=== PATIENT | female | born 1980 | race Caucasian/White ===

== ENCOUNTER → 2018-02-08 16:55 | Outpatient (CLI) | payer OTHER, SELFPAY ==
[2018-02-15 09:39] LABS: HPV Reflexed? NOT INDICATED
== END ==
PROVIDERS: Visit Provider Obstetrics & Gynecology
DX: Z12.4 Encounter for screening for malignant neoplasm of cervix (principal)
CPT/HCPCS: 88175; G0145

== ENCOUNTER → 2019-05-19 | Outpatient (CLI) | payer BC, SELFPAY ==
[2019-05-23 16:07] LABS: Age Gdln ACOG Testing 30-65 (.)
[2019-05-24 17:46] LABS: HPV APTIMA, High Risk Negative (Negative); HPV Reflexed? YES, CHARGE PATIENT
== END | disposition home or self-care (01) ==
LOC: LABSPEC 16:21
PROVIDERS: Visit Provider Obstetrics & Gynecology
DX: Z12.4 Encounter for screening for malignant neoplasm of cervix (principal)
CPT/HCPCS: 87624; 88175; G0145

== ENCOUNTER → 2020-11-12 | Outpatient (CLI) | payer BC, SELFPAY | END | disposition home or self-care (01) | LOC: LABSPEC 15:27 | PROVIDERS: Referring Provider Otolaryngology Otolaryngology/Facial Plastic Surgery; Visit Provider Otolaryngology Otolaryngology/Facial Plastic Surgery | DX: J02.9 Acute pharyngitis, unspecified (principal) | CPT/HCPCS: 87070 ==

== ENCOUNTER → 2021-08-13 | Outpatient (CLI) | payer BC, SELFPAY ==
[2021-08-13 10:35] LABS: Absolute Lymphocyte Count 1.32 X10^3/uL (0.83-4.51); Absolute Neutrophil Count 1.6 X10^3/uL (2.0-7.7); Basophil# 0.03 X10^3/uL; Basophil% 0.9 % (0-1); Eosinophil# 0.05 X10^3/uL; Eosinophils% 1.5 % (0-5); Hematocrit 40.3 % (37-47); Hemoglobin 13.1 g/dL (12.0-15.0); Lymphocyte # 1.32 X10^3/ul (0.83-4.51); Lymphocyte % 40.5 % (19-41); Mean Corp Hgb Conc 32.5 g/dL (32-36); Mean Corpuscular Hgb 30.5 pg (27.0-32.0); Mean Corpuscular Volume 93.9 fL (81-99); Mean Platelet Vol. 9.8 fl (6.2-12.0); Monocyte# 0.26 X10^3/uL; NRBC Flagged by Analyzer 0 % (0-5); Neutrophil # 1.59 X10^3/uL (2.7-7.7); Neutrophil % 48.8 % (47-70); Platelet Count 293 K/mm3 (150-450); RBC Distribution Width CV 12.2 % (11.6-14.6); RBC Distribution Width SD 42.5 fl (35.1-43.9); Red Blood Count 4.29 M/mm3 (4.2-5.4); White Blood Count 3.3 K/mm3 (4.4-11.0)
[2021-08-13 10:40] LABS: Erythrocyte Sedimentation Rate 7 mm/hr (0-30)
[2021-08-13 10:57] LABS: AST(SGOT) 11 U/L (15-37); Alanine Aminotransfer ALT/SGPT 24 U/L (13-56); Albumin, Serum 3.9 g/dL (3.2-5.0); Alkaline Phosphatase 36 U/L (45-117); Anion Gap 7 (5-15); BUN 9 mg/dL (7-18); BUN/Creat Ratio 11.8 RATIO (10-20); CRP < 2.90 mg/L (0.0-3.0); Calcium,Total 9.3 mg/dL (8.5-10.1); Chloride 106 mmol/L (98-107); Creatinine, Serum 0.76 mg/dL (0.55-1.02); EST Glomerular Filtration Rate 89 mL/min (>60); Est Glom Filt Rate - Afr Amer 107 mL/min (>60); Glucose 86 mg/dL (74-106); Potassium 3.6 mmol/L (3.5-5.1); Protein, Total 7.9 g/dL (6.4-8.2); Sodium Level 139 mmol/L (136-145)
[2021-08-14 16:08] LABS: Endomysial Antibody IgA Negative (Negative)
[2021-08-15 17:26] LABS: Immunoglobulin A 274 mg/dL (87-352); t-Transglutaminase IgA <2 U/mL (0-3)
== END | disposition home or self-care (01) ==
LOC: LAB 09:23
PROVIDERS: PCP Internal Medicine; Referring Provider Nurse Practitioner Adult Health; Visit Provider Nurse Practitioner Adult Health
DX: R10.9 Unspecified abdominal pain (principal)
CPT/HCPCS: 36415; 80053; 82784; 83516; 85025; 85652; 86140; 86255

== ENCOUNTER 2021-08-16 10:14 | Emergency (ER) | payer BC, SELFPAY ==
[2021-08-16 10:15] VITALS: BP 172/104; PULSE 95; RESP 14; TEMP 36.4; O2SAT 100; BMI 21.4
--- NOTE | 2021-08-16 10:35 | CT_ITS ---
STUDY: CT ABDOMEN AND PELVIS WITH CONTRAST REASON FOR EXAM: Female, 40 years old. Epigastric pain RADIATION DOSAGE (If Supplied By Facility): CTDIvol = ( 8.79 ) mGy, DLP = ( 349.17 ) mGycm TECHNIQUE: Transaxial images were obtained from the dome of the diaphragm to the symphysis pubis with oral contrast. Oral and amp; IV Gastrografin and amp; 100mL Isovue-370 was administered. Sagittal and coronal images were reconstructed. Individualized dose optimization techniques were used for this CT. COMPARISON: None. FINDINGS: The visualized lung bases are unremarkable. The visualized portions of the heart are within normal limits. Multiple small low-density lesions likely presenting cysts, the largest is in the left lobe of the liver measuring about 3 cm. Hepatomegaly. Normal gallbladder and extrahepatic biliary system. Normal spleen. Normal pancreas. Normal bilateral adrenal glands. Minimal prominence of the renal pelvis bilaterally. No evidence of hydronephrosis or ureteral stone. Normal visualized stomach. Normal small intestine. No evidence of acute diverticulitis. The appendix is visualized and appears normal. Normal abdominal aorta. Normal inferior vena cava. Normal retroperitoneum. Normal urinary bladder. Retroverted uterus. 3.3 cm right adnexal cyst. Tampon present in the cervix. Normal abdominal wall. Normal osseous structures. CT/Abdomen/Pelvis WITH Contrast IMPRESSION: 1. Hepatomegaly. 2. Multiple low-density liver lesions likely presenting cysts. 3. No focal acute inflammatory process. 4. Right adnexal cyst. Electronically Signed: Victor Manuel Zabala MD at 13:13 EDT ,
--- NOTE | 2021-08-16 10:36 | EDS_ITS ---
HPI HPI - GI History of Present Illness Chief Complaint: Abd Pain Detail of Chief Complaint: Abdominal pain x4 months Informant: patient Abdominal Pain/Flank Pain Maximum Severity: 4/10 Nausea/Vomiting/Emesis GI Symptom: Positive for Nausea and Vomiting Narrative Narrative: Patient presents to the emergency department with complaint of abdominal pain for the last 4 months. Patient was seen in [place] several months ago while she was on vacation for this pain in the emergency department and had a gallbladder ultrasound that looked okay. Patient saw GI nurse practitioner and is scheduled to have a CAT scan of her abdomen pelvis with IV and p.o. contrast in 2 days. Patient started having more pain in the last 24 hours in the epigastric region radiating through to her back. She has had nausea and dry heaves. Patient states she is lost about 25 pounds and has no appetite. She has lost 10 pounds in the last month. She denies any blood in her stool or black tarry stools. Prior similar symptoms: No PFSH PFSH Medical History (Updated 08/16/21 @ 13:[address] Anshu Sawyer, ) GERD (gastroesophageal reflux disease) Hypothyroid Home Medications pantoprazole 40 mg tablet,delayed release 40 mg PO BID #60 tab 07/30/21 [Rx Last Taken Unknown] Control 1 tab PO/SL DAILY 08/16/21 [History Last Taken Unknown] levothyroxine 75 mcg PO SA 08/16/21 [History Last Taken Unknown] levothyroxine 150 mcg PO SUMOTUWETHFR 08/16/21 [History Last Taken Unknown] ondansetron 4 mg PO Q8H PRN PRN #10 tab 08/16/21 [Rx Last Taken Unknown] Allergy/AdvReac Type Severity Reaction Status Date / Time No Known Allergies Allergy Verified 08/16/21 10:17 Family History Father Cancer Prostate Grandfather Cancer Prostate Myocardial infarction Surgical History H/O total thyroidectomy H/O umbilical hernia repair Social History Smoking Status: Never smoker alcohol intake: current alcohol intake frequency: a few times a month ROS ROS ED Constitutional Constitutional ED: Reports systems reviewed and no addt'l complaints, except as documented; Denies body ache(s), change in weight or chills Eyes Eyes: Denies acute decrease in peripheral vision, change in vision, double vision or loss of vision ENT ENT ED: Reports none; Denies ear pain, lip swelling, loss taste/smell, neck pain, otalgia or sore throat Cardiovascular Cardiovascular: Reports none; Denies abdominal pain, chest pain with activity, leg edema, lightheadedness, palpitations, rapid heart rate or syncope Respiratory/Chest Respiratory/Chest: Reports none; Denies change in mental status, dry cough, dyspnea, hemoptysis, shortness of breath at rest or shortness of breath with exertion Gastrointestinal Gastrointestinal: Reports none, abdominal pain, diarrhea, nausea and vomiting; Denies change in stool character, hematemesis, hematochezia, melena or rectal bleeding Genitourinary Genitourinary ED: Reports none; Denies abdominal discomfort, anuria, dysuria, genital pain or polyuria Musculoskeletal Musculoskeletal: Reports none; Denies arthralgias, back pain, difficulty walking, extremity pain, muscle weakness or myalgias Integumentary Reports none; Denies abscess or rash Neurologic Neurologic: Reports none; Denies abnormal gait, confusion, focal weakness, frequent falls, headache(s), loss of vision, numbness, paresthesias, radicular pain, vertigo or weakness Psychiatric Psychiatric: Reports systems reviewed and no addt'l complaints, except as documented and none; Denies behavioral changes, confusion, difficulty concentrating, hallucinations, suicidal ideation, tactile hallucinations or visual hallucinations Endocrine Endocrinology: Denies none, cold intolerance, excessive sweating, fatigue or heat intolerance Hematologic/Lymphatic Hematologic/Lymphatic: Reports none; Denies anemia, easy bleeding or easy bruising Allergic/Immunologic Allergic/Immunologic ED: Denies as per HPI, none, lip swelling, mouth swelling, throat swelling, tongue swelling or hives EXAM Physical Exam Const Vital Signs: 08/16/21 10:15 08/16/21 13:07 Temperature 97.5 F L Temperature Source Temporal Pulse Rate 95 88 Respiratory Rate 14 14 Blood Pressure 172/104 H 135/85 H Blood Pressure Mean 126 101 Pulse Ox 100 100 Oxygen Delivery Method Room Air Room Air Positive well nourished and well developed General Appearance ED: well developed and NAD HEENT Reports TM's clear and moist mucous membranes normocephalic and atraumatic; Negative for trauma or tenderness Tympanic Membrane ED: Yes TM's clear Eyes PERRL and EOMs intact bilaterally General Eye ED: Negative for pale conjunctiva or scleral icterus Neck no lymphadenopathy, supple and no JVD General: Negative for tenderness Chest Wall inspection of chest normal and palpation of chest normal Chest: Negative for tenderness Resp normal respiratory effort and clear to auscultation bilaterally Effort and Inspection: Negative for respiratory distress or pain with movement Auscultation: Negative for rhonchi, wheezes or diminished lung sounds Cardio regular rate, regular rhythm, S1 normal heart sound, S2 normal heart sound and no murmurs Peripheral Pulses: pulses 2+ throughout GI normal to inspection, nondistended, normoactive bowel sounds, soft to palpation, non-distended and no masses GI Narrative: Tenderness palpation over the epigastric region with guarding. There is no rebound, rigidity, or peritoneal signs. Back/Spine no CVA tenderness and no thoracic nor lumbar tenderness Extremity normal to inspection General Extremety ED: Negative for edema General Extremity: Negative for edema Neuro oriented x3, CN's II-XII intact bilaterally, no sensory deficits noted and gait normal Sensorium / Orientation: awake, alert, oriented to person, oriented to place and oriented to time Motor Exam: strength 5/5 throughout and strength abnormal Psych mental status grossly normal Skin no rashes or lesions noted and no wounds MDM MDM MDM Narrative Medical decision making narrative: IV line established on arrival. Patient did not want anything for pain or nausea. Patient had essentially normal labs. Urine was normal. CT scan of the abdomen pelvis with IV and p.o. contrast were also unremarkable other than some liver cysts. At this point etiology of her epigastric pain is unclear. Patient has a follow-up appointment with gastroenterology and has a scheduled EGD in September. Patient will be given a prescription for Zofran. She does not anything else for pain. Lab Data Attestation: I reviewed the patient's lab results. Labs: Laboratory Results - last 24 hr 08/16/21 08/16/21 08/16/21 10:48 10:58 10:58 WBC 5.2 RBC 4.46 Hgb 13.6 Hct 40.8 MCV 91.5 MCH 30.5 MCHC 33.3 RDW Std Deviation 40.0 RDW Coeff of Nicole 11.9 Plt Count 343 MPV 9.2 Immature Gran % (Auto) 0.400 Neut % (Auto) 75.8 H Lymph % (Auto) 18.8 L [place] % (Auto) 4.6 Eos % (Auto) 0.0 Baso % (Auto) 0.4 Absolute Neuts (auto) 3.9 Absolute Lymphs (auto) 0.97 Nucleated RBC % 0 Sodium 136 Potassium 4.0 Chloride 105 Carbon Dioxide 25.0 Anion Gap 6 BUN 7 Creatinine 0.70 Estim Creat Clear Calc 91.33 Est GFR (MDRD) Af Amer 119 Est GFR (MDRD) Non-Af 98 BUN/Creatinine Ratio 10.1 Glucose 101 Lactic Acid Calcium 9.1 Total Bilirubin 0.40 AST 11 L ALT 23 Alkaline Phosphatase 41 L Total Protein 7.5 Albumin 3.7 Globulin 3.8 Albumin/Globulin Ratio 1.0 Lipase 153 Serum , Qual Urine Color Straw Urine Clarity Clear Urine pH 6.5 Ur Specific [place] 1.005 Urine Protein Negative Urine Glucose (UA) Normal Urine Ketones Negative Urine Occult Blood 50 H Urine Nitrite Negative Urine Bilirubin Negative Urine Urobilinogen Normal Ur Leukocyte Esterase Negative Urine RBC 5-10 SEEN Urine WBC 0 SEEN Ur Squamous Epith Cells 0 SEEN Urine Bacteria 0 SEEN Urine Mucus 0 SEEN 08/16/21 08/16/21 10:58 10:58 WBC RBC Hgb Hct MCV MCH MCHC RDW Std Deviation RDW Coeff of Nicole Plt Count MPV Immature Gran % (Auto) Neut % (Auto) Lymph % (Auto) [place] % (Auto) Eos % (Auto) Baso % (Auto) Absolute Neuts (auto) Absolute Lymphs (auto) Nucleated RBC % Sodium Potassium Chloride Carbon Dioxide Anion Gap BUN Creatinine Estim Creat Clear Calc Est GFR (MDRD) Af Amer Est GFR (MDRD) Non-Af BUN/Creatinine Ratio Glucose Lactic Acid 1.3 Calcium Total Bilirubin AST ALT Alkaline Phosphatase Total Protein Albumin Globulin Albumin/Globulin Ratio Lipase Serum , Qual NEGATIVE Urine Color Urine Clarity Urine pH Ur Specific [place] Urine Protein Urine Glucose (UA) Urine Ketones Urine Occult Blood Urine Nitrite Urine Bilirubin Urine Urobilinogen Ur Leukocyte Esterase Urine RBC Urine WBC Ur Squamous Epith Cells Urine Bacteria Urine Mucus Radiography Diagnostic Testing: Clinical Impression(s) from Imaging Studies Abdomen/Pelvis CT 08/16/21 10:35 IMPRESSION: 1. Hepatomegaly. 2. Multiple low-density liver lesions likely presenting cysts. 3. No focal acute inflammatory process. 4. Right adnexal cyst. Electronically Signed: Victor Manuel Zabala MD at 13:13 EDT , Discharge Plan Triage Chief Complaint: Abd Pain ED Provider: Anshu Sawyer Dx/Rx/DC Orders Clinical Impression: Epigastric pain, Abdominal pain Instructions: ED Abdominal Pain Unkn Cause Fem Prescriptions: New ondansetron [ondansetron] 4 MG tablet 4 mg PO Q8H PRN PRN (Reason: Nausea) Qty: 10 RF: 0 No Action pantoprazole 40 mg tablet,delayed release (DR/EC) 40 mg PO BID Qty: 60 RF: 2 levothyroxine 150 mcg tablet 150 mcg PO SUMOTUWETHFR RF: 0 levothyroxine 150 mcg tablet 75 mcg PO SA RF: 0 Control 1 tab PO/SL DAILY RF: 0 Primary Care Provider: Zena Pak Referrals: Zena Pak MD [Primary Care Provider] - Disposition Disposition: Home, Self Care
[2021-08-16 10:56] LABS: Bacteria 0 SEEN /hpf (None Seen); Mucous, Urine 0 SEEN /hpf (<or=2+); Squamous Epithelial Cells - UA 0 SEEN /hpf (5-10); White Blood Cells 0 SEEN /hpf (0-5)
[2021-08-16 10:58] LABS: Color, Urine Straw (Yellow); Glucose, Dipstick Normal (Normal); Ketone-Dipstick Negative (Negative); Leukocyte Esterase-Dipstick Negative /ul (Negative); Nitrite-Dipstick Negative (Negative); Occult Blood-Urine 50 /ul (Negative); Protein-Dipstick Negative (Negative); Specific Gravity, Urine 1.005 (1.002-1.030); Urine Bilirubin Dipstick Negative (Negative); Urine Clarity Clear (Clear); Urine Urobilinogen Normal (Normal); Urine pH 6.5 (5.0 - 8.0)
[2021-08-16 11:05] LABS: Red Blood Cells-Urine 5-10 SEEN /hpf (0-5)
[2021-08-16 11:08] LABS: Absolute Lymphocyte Count 0.97 X10^3/uL (0.83-4.51); Absolute Neutrophil Count 3.9 X10^3/uL (2.0-7.7); Basophil# 0.02 X10^3/uL; Basophil% 0.4 % (0-1); Hematocrit 40.8 % (37-47); Hemoglobin 13.6 g/dL (12.0-15.0); Lymphocyte # 0.97 X10^3/ul (0.83-4.51); Lymphocyte % 18.8 % (19-41); Mean Corp Hgb Conc 33.3 g/dL (32-36); Mean Corpuscular Hgb 30.5 pg (27.0-32.0); Mean Corpuscular Volume 91.5 fL (81-99); Mean Platelet Vol. 9.2 fl (6.2-12.0); Monocyte# 0.24 X10^3/uL; Monocyte% 4.6 % (0-10); NRBC Flagged by Analyzer 0 % (0-5); Neutrophil # 3.92 X10^3/uL (2.7-7.7); Neutrophil % 75.8 % (47-70); Platelet Count 343 K/mm3 (150-450); RBC Distribution Width CV 11.9 % (11.6-14.6); Red Blood Count 4.46 M/mm3 (4.2-5.4); White Blood Count 5.2 K/mm3 (4.4-11.0)
[2021-08-16] MEDS: Ondansetron 4 MG/2 ML Vial IV (11:11)
[2021-08-16] MEDS: 0.9% Normal Saline 1,000 ML 125 ML IV (11:11)
[2021-08-16 11:16] LABS: Internal QC Validated? YES +Cl - CLEAR BKGD; Pregnancy, Serum, hCG Quali. NEGATIVE Negative
[2021-08-16 11:23] LABS: AST(SGOT) 11 U/L (15-37); Alanine Aminotransfer ALT/SGPT 23 U/L (13-56); Albumin, Serum 3.7 g/dL (3.2-5.0); Alkaline Phosphatase 41 U/L (45-117); Anion Gap 6 (5-15); BUN 7 mg/dL (7-18); BUN/Creat Ratio 10.1 RATIO (10-20); Calcium,Total 9.1 mg/dL (8.5-10.1); Chloride 105 mmol/L (98-107); EST Glomerular Filtration Rate 98 mL/min (>60); Est Glom Filt Rate - Afr Amer 119 mL/min (>60); Estimated Creatinine Clearance 91.33 ml/min; Globulin 3.8 g/dL (2.2-4.2); Glucose 101 mg/dL (74-106); Lipase 153 U/L (73-393); Protein, Total 7.5 g/dL (6.4-8.2); Sodium Level 136 mmol/L (136-145)
[2021-08-16 11:44] LABS: Lactic Acid 1.3 mmol/L (0.4-1.9)
[2021-08-16 13:07] VITALS: BP 135/85; PULSE 88; RESP 14; O2SAT 100
== END 2021-08-16 13:49 | disposition home or self-care (01) ==
PROVIDERS: Emergency Provider Emergency Medicine; PCP Internal Medicine; Visit Provider Emergency Medicine
DX: R10.13 Epigastric pain (principal); R11.2 Nausea with vomiting, unspecified; Z20.822 Contact with and (suspected) exposure to COVID-19; K76.89 Other specified diseases of liver; E89.0 Postprocedural hypothyroidism; K21.9 Gastro-esophageal reflux disease without esophagitis; Z79.890 Hormone replacement therapy; Z79.899 Other long term (current) drug therapy
CPT/HCPCS: 74177; 80053; 81001; 83605; 83690; 84703; 85025; 87811; 96361; 96374; 99283; J7030; Q9967; A4216; J2405

== ENCOUNTER → 2021-08-22 | Outpatient (CLI) | payer BC, SELFPAY ==
[2021-08-22 10:02] LABS: Prothrombin Time (Protime)PT. 13.1 SECONDS (11.7-14.9)
[2021-08-22 10:21] LABS: Amylase 43 U/L (25-115); Ferritin 9 ng/mL (8-252); LDH 134 U/L (84-246)
[2021-08-22 10:25] LABS: Hemoglobin A1c 5.1 % (3.8-5.6)
[2021-08-22 10:47] LABS: HIV - WCH Non-Reactive (Nonreactive)
[2021-08-25 11:07] LABS: Anti-Centromere B Ab <0.2 AI (0.0-0.9); Anti-Chromatin <0.2 AI (0.0-0.9); Anti-Jo <0.2 AI (0.0-0.9); Anti-Scleroderma-70 AB <0.2 AI (0.0-0.9); RNP Ab <0.2 AI (0.0-0.9); SJOGREN'S Anti-SS-A test < 0.2 AI (0.0-0.9); SJOGREN'S Anti-SS-B test < 0.2 AI (0.0-0.9); Smith Ab <0.2 AI (0.0-0.9)
[2021-08-25 12:22] LABS: Anti-Mitochondrial AB <20.0 Units (0.0-20.0); Anti-dsDNA Ab 1 IU/mL (0-9)
[2021-08-26 17:07] LABS: Angiotensin Convert Enzyme 23 U/L (14-82); Ceruloplasmin 24.6 mg/dL (19.0-39.0); Cytoplasmic Ab (C-ANCA) 1:20 titer (Neg:<1:20); HEPATITIS B SURFACE AG Negative (Negative); Hep C Antibodies <0.1 s/co ratio (0.0-0.9); Hepatitis A IgM Antibody Negative (Negative); Hepatitis B Core AB IgM Negative (Negative)
[2021-08-27 12:29] LABS: AFP, Tumor Marker 2.5 ng/mL (0.0-6.4); Anti-Smooth Muscle ABS 33 Units (0-19); Copper, Serum or Plasma 106 ug/dL (80-158); Haptoglobin 82 mg/dL (42-296); Perinuclear Ab (P-ANCA) <1:20 titer (Neg:<1:20)
== END | disposition home or self-care (01) ==
LOC: LAB 09:20
PROVIDERS: PCP Internal Medicine; Referring Provider Nurse Practitioner Adult Health; Visit Provider Nurse Practitioner Adult Health
DX: R16.0 Hepatomegaly, not elsewhere classified (principal)
CPT/HCPCS: 36415; 80074; 82105; 82140; 82150; 82164; 82390; 82525; 82728; 83010; 83036; 83516; 83615; 85610; 86225; 86235; 86256; 86703

== ENCOUNTER → 2021-08-28 | Outpatient (CLI) | payer BC, SELFPAY ==
[2021-08-28 08:37] LABS: LDH 135 U/L (84-246)
[2021-09-03 06:08] LABS: Albumin 3.8 g/dL (2.9-4.4); Alpha-1-Globulins 0.2 g/dL (0.0-0.4); Alpha-2-Globulins 0.6 g/dL (0.4-1.0); Gamma Globulin 1.2 g/dL (0.4-1.8); Immunoglobulin A 259 mg/dL (87-352); Immunoglobulin G 1076 mg/dL (586-1602); Immunoglobulin M 184 mg/dL (26-217); PROEL- TOTAL PROTEIN 6.9 g/dL (6.0-8.5)
[2021-09-04 16:51] LABS: Immunoglobulin E 31 IU/mL (6-495)
== END | disposition home or self-care (01) ==
LOC: LAB 07:16
PROVIDERS: PCP Internal Medicine; Referring Provider Nurse Practitioner Adult Health; Visit Provider Nurse Practitioner Adult Health
DX: R76.0 Raised antibody titer (principal); R16.0 Hepatomegaly, not elsewhere classified
CPT/HCPCS: 36415; 82784; 82785; 83615; 84165; 86334

== ENCOUNTER → 2021-08-29 | Outpatient (CLI) | payer BC, SELFPAY ==
[2021-08-29 13:41] LABS: Erythrocyte Sedimentation Rate 2 mm/hr (0-30)
[2021-08-29 13:43] LABS: Absolute Lymphocyte Count 1.77 X10^3/uL (0.83-4.51); Absolute Neutrophil Count 3.3 X10^3/uL (2.0-7.7); Basophil# 0.04 X10^3/uL; Basophil% 0.7 % (0-1); Eosinophils% 1.8 % (0-5); Hematocrit 39.6 % (37-47); Hemoglobin 12.9 g/dL (12.0-15.0); Lymphocyte # 1.77 X10^3/ul (0.83-4.51); Lymphocyte % 31.3 % (19-41); Mean Corp Hgb Conc 32.6 g/dL (32-36); Mean Corpuscular Hgb 30.7 pg (27.0-32.0); Mean Corpuscular Volume 94.3 fL (81-99); Mean Platelet Vol. 9.7 fl (6.2-12.0); Monocyte# 0.41 X10^3/uL; Monocyte% 7.3 % (0-10); NRBC Flagged by Analyzer 0 % (0-5); Neutrophil # 3.32 X10^3/uL (2.7-7.7); Neutrophil % 58.7 % (47-70); Platelet Count 278 K/mm3 (150-450); RBC Distribution Width CV 12.1 % (11.6-14.6); RBC Distribution Width SD 42.2 fl (35.1-43.9); White Blood Count 5.7 K/mm3 (4.4-11.0)
[2021-08-29 14:08] LABS: AST(SGOT) 18 U/L (15-37); Alanine Aminotransfer ALT/SGPT 31 U/L (13-56); Albumin, Serum 3.6 g/dL (3.2-5.0); Alkaline Phosphatase 47 U/L (45-117); Amylase 42 U/L (25-115); Anion Gap 8 (5-15); BUN 10 mg/dL (7-18); BUN/Creat Ratio 16.9 RATIO (10-20); CRP < 2.90 mg/L (0.0-3.0); Calcium,Total 8.8 mg/dL (8.5-10.1); Chloride 104 mmol/L (98-107); Creatinine, Serum 0.59 mg/dL (0.55-1.02); EST Glomerular Filtration Rate 118 mL/min (>60); Est Glom Filt Rate - Afr Amer 143 mL/min (>60); Globulin 3.5 g/dL (2.2-4.2); Glucose 88 mg/dL (74-106); Lipase 160 U/L (73-393); Potassium 4.1 mmol/L (3.5-5.1); Protein, Total 7.1 g/dL (6.4-8.2); Sodium Level 137 mmol/L (136-145)
[2021-09-04 22:06] LABS: Albumin 3.6 g/dL (2.9-4.4); Alpha-1-Globulins 0.3 g/dL (0.0-0.4); Alpha-2-Globulins 0.7 g/dL (0.4-1.0); Gamma Globulin 1.2 g/dL (0.4-1.8); Immunoglobulin A 253 mg/dL (87-352); Immunoglobulin G 1028 mg/dL (586-1602); Immunoglobulin M 173 mg/dL (26-217); PROEL- TOTAL PROTEIN 6.8 g/dL (6.0-8.5)
[2021-09-05 10:10] LABS: Immunoglobulin E 32 IU/mL (6-495)
== END | disposition home or self-care (01) ==
PROVIDERS: PCP Internal Medicine; Referring Provider Nurse Practitioner Adult Health; Visit Provider Nurse Practitioner Adult Health
DX: R10.13 Epigastric pain (principal); R76.0 Raised antibody titer; R16.0 Hepatomegaly, not elsewhere classified
CPT/HCPCS: 36415; 80053; 82150; 82784; 82785; 83690; 84165; 85025; 85652; 86140; 86334

== ENCOUNTER → 2021-09-09 | Outpatient (CLI) | payer BC, SELFPAY ==
--- NOTE | 2021-09-09 07:45 | US_ITS ---
STUDY: ABDOMINAL ULTRASOUND - RIGHT UPPER QUADRANT REASON FOR VISIT: Female, 40 years old for elastography -- HEPATOMEGALY TECHNIQUE: Ultrasound evaluation of the right upper quadrant was performed with real-time and static whitman-scale imaging. TECHNICAL QUALITY: Adequate. COMPARISON: Comparison is made with prior CT scan the abdomen and pelvis dated 08/16/2021. FINDINGS: Liver: The liver is enlarged and measures 19.1 cm. There is normal echogenicity of the liver. The bile ducts are within normal limits. There is hepatic color flow. The direction of portal flow is hepatopetal. Multiple cysts are seen. The largest cyst measures 3.6 cm x 3.8 cm x 2.7 Gallbladder: Normal distended gallbladder. The gallbladder wall measures 2.1 mm. There is a negative sonographic Sinha''s sign. There is no pericholecystic fluid. There are no gallstones. There is a 4.2 mm x 3.1 mm polyp adherent to the gallbladder wall. Common Bile Duct (C.B.D.): The common bile duct measures 1.6 mm. Pancreas: Normal size of the head, body and tail of the pancreas. There is normal echogenicity of the pancreas. There is no demonstrated pancreatic mass or cyst. Right Kidney: Normal size of the right kidney. The right kidney measures 12.1 cm x 5.3 cm x 4.3 cm. Normal renal cortex. The right cortex measures 1.7 cm. There is no demonstrated renal mass or cyst. There is no right hydronephrosis. US/Abdomen Limited IMPRESSION: Hepatomegaly. Multiple hepatic cysts. Small gallbladder polyp. Electronically Signed: Luis Smith MD at 12:20 EDT ,
--- NOTE | 2021-09-09 07:45 | US_ITS ---
STUDY: ABDOMINAL ULTRASOUND - ELASTOGRAPHY REASON FOR VISIT: Female, 40 years old. Hepatomegaly. TECHNIQUE: Liver stiffness measurements were obtained on a [employer] RS 85 ultrasound machine using a CA 1-7 probe following the SRU guidelines. 3 measurements were obtained using a 2-D-SWE method. The IQR/M was 15% suggesting a quality data set. TECHNICAL QUALITY: Adequate. COMPARISON: Comparison is made with prior study done earlier in the day. FINDINGS: Liver: Hepatomegaly. Median liver stiffness measured 6.3 kPa. US/Elastography Parenchyma/Organ IMPRESSION: Liver stiffness measures 6.3 kPa compatible with F2-F3 (Mild to moderate liver fibrosis) Metavir score. Electronically Signed: Luis Smith MD at 12:22 EDT ,
== END | disposition home or self-care (01) ==
LOC: US 07:41
PROVIDERS: PCP Internal Medicine; Referring Provider Nurse Practitioner Adult Health; Visit Provider Nurse Practitioner Adult Health
DX: R16.0 Hepatomegaly, not elsewhere classified (principal); K82.4 Cholesterolosis of gallbladder
CPT/HCPCS: 76705; 76981

== ENCOUNTER 2021-09-10 05:45 | Day surgery (SDC) | payer BC, SELFPAY ==
[2021-09-10] VITALS (7 sets, daily range): BP systolic 85–105; BP diastolic 51–76; PULSE 74–95; RESP 16; TEMP 36.4–36.6; O2SAT 100; BMI 20.8
[2021-09-10 06:25] LABS: Internal QC Validated? YES +Cl - CLEAR BKGD; Pregnancy, Urine Negative Negative
[2021-09-10] MEDS: Lactated Ringers 1,000 ML 15 ML IV (06:31)
--- NOTE | 2021-09-10 06:40 | HP.PCM_ITS ---
History and Physical Date of Admission: 09/10/21 CASSANDRA GUERRIER, is a 40 F who presents to the office today for concern about ongoing weight loss, abdominal pain, nausea, diarrhea.? She feels absolutely miserable therefore is worked in for an acute visit.? She is accompanied by her mother. She established with this office on 07/30/2021 for epigastric pain, bloating, acid reflux. Her symptoms have worsened significantly since that visit. In November 2020 she developed chest pain, she was diagnosed with acid reflux, treated with doubling her dose of?PPI with only partial relief. In mid April 2021 she developed much more severe epigastric pain and bloating, as well as nausea; interestingly, when she took amoxicillin for sinusitis she finally had significant improvement in her epigastric pain, as well as in nausea and bloating; therefore we tried treating her for possible H. pylori infection however that was not effective at minimizing her symptoms.? No alcohol.? At that initial appointment she reported a decreased appetite.? At that initial appointment she denied weight changes, dysphagia, no diarrhea, constipation, melena, hematochezia, vomiting, hematemesis. Today she reports she has no appetite at all now.? She has lost 4 pounds since her initial visit with us.? Pain with swallowing, feels like a lump in her upper esophagus, had a sore throat earlier this week. Not feeling acid reflux, remains on PPI. Intermittent nausea, some relief with zofran. Dry heaves yesterday when she tried to eat. Abd discomfort generalized.? Very tender when pressed over the stomach.? Less bloated as she eats less. Constipated with zofran, then has to strain and has blood per rectum. Otherwise 2-4 soft yellow stools per day, not watery, may be about 45 minutes after eating. Foggy thinking. Intermittent feeling of hot with tingling all over, feels like she might pass out. Work-up so far has revealed mildly elevated c-ANCA 1:20, elevated anti-smooth muscle antibody 33 (normal 0-19).? Remainder of the biochemical work-up for NAFLD is normal.? Amylase normal 43. Recent thyroid labs at [facility]: TSH 0.25 CT abdomen and pelvis with oral and IV contrast done at the ED showed hepatomegaly approximately 19 cm and liver cysts.? We ordered ultrasound and liver elastography. She is generally very healthy, history of total thyroidectomy, history of umbilical hernia repair Non-smoker, no alcohol currently and only minimal alcohol use previously ROS Const Constitutional: Positive for fatigue and weight change ENT ENT: Positive for difficulty swallowing Gastro GI: Positive for abdominal pain, bloating, constipation, diarrhea, difficulty swallowing, excessive flatus, Blood in stool, nausea/dyspepsia and pain with swallowing; No belching, change in bowel habits, change in stool character, coffee ground emesis, cramping, heartburn, feeling full early, incontinent of stools, Vomiting blood/hematemesis, loose stools, Black,tarry stools, vomiting or other Musc Musculoskeletal: Positive for muscle weakness, numbness and tingling; No joint pain Skin Skin: No yellowing of the eye or itchy eyes Neuro Neurology: Positive for numbness and tingling Psych Psychiatric: Positive for anxiety and No depression Endo Endocrine: Positive for fatigue and weight change Aller/Imm Allergy/Immunologic: No itchy eyes Danny/Lymp Hematologic/Lymphatic: No easy bleeding or easy bruising Exam Const General: well developed, anxious and ill appearing acutely (nontoxic) Nutritional Appearance: thin HENMT Head: normal to inspection Eyes General: appearance normal, both eyes and all related structures Neck Neck: normal visual inspection, no lymphadenopathy, supple and nontender Resp Effort & Inspection: normal respiratory effort GI Inspection: normal to inspection Palpation: soft, no hepatosplenomegaly, no guarding, no masses, tender in the epigastrum and No ascites Skin General: no rashes or lesions noted Neuro General: patient alert, patient awake and patient oriented x3 Speech: speech normal Gait: normal gait Extrem General: normal to inspection Quality Reporting Tobacco Screening ([facility] 138) Smoking Status: Never smoker Assessment and Plan Assessment and Plan (1) Epigastric pain: ?Status:?Acute ?Plan: 40-year-old female with epigastric pain as well as tenderness on exam, anorexia, nausea, change in stools as well as hepatomegaly, elevated anti-smooth muscle antibody.? She had known acid reflux.? We are in the process of working up her new GI symptoms of epigastric pain and worsening acid reflux, as well as the new finding of hepatomegaly; and she now has worsening of the symptoms to the point of more severe abdominal pain, nausea, anorexia, some weight loss.? She is extremely worried about the possibility of cancer.? We reviewed her work-up thus far in detail.? No evidence for need for hospitalization at this point in time.? She has tried sucralfate pills and found them difficult to swallow: We will try liquid sucralfate instead and we will have her continue PPI.? She has already tried hyoscyamine for abdominal pain without success.? She and her mother do recognize that anxiety is playing a role in exacerbating her symptoms.? I will provide a short course of alprazolam that she can take twice daily as needed for 1 week, if she needs more after that she would need to discuss with primary care.? She is scheduled for liver ultrasound/elastography, EGD, colonoscopy.? We will check labs today including CBC, CMP, amylase, lipase, sed rate, CRP just to make sure were not missing anything.? Case discussed with Dr. Leonardo. (2) Change in stool: ?Status:?Acute (3) Nausea: ?Status:?Acute (4) Hepatomegaly: ?Status:?Acute (5) Anorexia: ?Status:?Acute (6) Anxiety: ?Status:?Acute ? ? ? Orders: Orders Amylase Today R10.13 - Epigastric pain ? Comprehensive Metabolic Profil Today R10.13 - Epigastric pain ? CRP Today R10.13 - Epigastric pain ? Lipase Today R10.13 - Epigastric pain ? CBC W/Diff, Automated Today R10.13 - Epigastric pain ? Erythrocyte Sed Rate Today R10.13 - Epigastric pain ? Medications: New lorazepam 1 mg? PO BID 7 days PRN 14 tabs 0RF anxi ety ? ? sucralfate 10 mL? PO QACHS 414 mL 0RF ? ? I have re-examined the patient. There are no clinical changes since date of exam.
--- NOTE | 2021-09-10 07:00 | EGD_PTH ---
PATIENT: CASSANDRA GUERRIER LOC: EN U#:[id number] AGE/SX: 40/F ROOM: RE09/10/[address]: Dr. Philippe Leonardo DO : 1980 BED: DIS: 09/10/2021 SPEC #: [id number] RECD: 09/10/21 10:52 STATUS: MADHAVI BETHANIE #: [id number] STANISLAV: 09/10/21 07:[address]: Philippe Leonardo DEPT: SURGICAL PATHOLOGY RECD BY: Filomena Fowler ENTERED: 09/10/21 12:11 SP TYPE: EGD BIOPSY OT DR: Dr. Zena aPk MD Tissues: A - Duodenum, NOS B - Pylorus C - Gastric mucous membrane D - Esophagus, NOS E - Ileum, NOS F - Cecum, NOS Procedures: Special Stain Group II Surgery Specimen Level IV Alcian Blue/PAS (control) HEADER OPERATION: Colonoscopy with biopsy, [place] with biopsy [place] [place] PRE-OP DIAGNOSIS: Epigastric pain, change in stool, nausea, hepatomegaly, anorexia TISSUE SUBMITTED: A ? Duodenum biopsy, B ? Pylorus biopsy, C ? Antrum biopsy for H. pylori and path, D ? Distal esophagus biopsy, E ? Terminal ileum biopsy, F ? Cecum biopsy MICROSCOPIC DIAGNOSIS A. Duodenum, biopsy: A fragment of duodenal mucosa, no pathologic diagnosis. B. Pylorus, biopsy: Mild to moderate gastritis. Focal intestinal metaplasia (goblet cell metaplasia). See microscopic description. C. Antrum, biopsy: Mild gastritis. See microscopic description and comment. D. Distal esophagus, biopsy: Fragments of gastroesophageal mucosa with chronic inflammation. A few cells with intestinal metaplasia (goblet cell metaplasia). See comment. E. Terminal ileum, biopsy: Fragments of small intestinal mucosa, no pathologic diagnosis. F. Cecum, biopsy: A fragment of colonic mucosa with mild nonspecific chronic inflammation. SJ:emperatriz 09/11/2021 COMMENT B. Alcian blue/PAS stain with matched control is used in the evaluation of the specimen. C. The results of immunohistochemistry for Helicobacter pylori will be reported separately ([id number]). D. Alcian blue/PAS stain with matched control is used in the evaluation of the specimen. MICROSCOPIC DESCRIPTION Slides are reviewed. B. The specimen shows fragments of gastric mucosa with chronic inflammatory cell infiltrates in the lamina propria consisting of lymphocytes and plasma cells, consistent with mild to moderate chronic gastritis. Focal intestinal metaplasia (goblet cell metaplasia) is also noted. C. The specimen shows fragments of gastric mucosa with chronic inflammatory cell infiltrates in the lamina propria consisting of lymphocytes and plasma cells, consistent with mild chronic gastritis. GROSS DESCRIPTION A - Received in fixative is one container labeled with the patient's name and designated duodenum biopsy. The specimen consists of a fragment of light shaikh soft tissue measuring 0.5 x 0.5 x 0.1 cm. The specimen is totally submitted in one cassette. B - Received in fixative is one container labeled with the patient's name and designated pylorus biopsy. The specimen consists of one irregular fragment of light shaikh soft tissue that measures 0.4 x 0.2 x 0.1 cm. The specimen is totally submitted in one cassette. C - Received in fixative is one container labeled with the patient's name and designated antrum biopsy. The specimen consists of two irregular fragments of light shaikh soft tissue that in aggregate measure 0.6 x 0.2 x 0.1 cm. The specimen is totally submitted in one cassette. D - Received in fixative is one container labeled with the patient's name and designated distal esophagus biopsy. The specimen consists of multiple irregular fragments of light shaikh soft tissue that in aggregate measure 0.7 x 0.5 x 0.1 cm. The specimen is totally submitted in one cassette. E - Received in fixative is one container labeled with the patient's name and designated terminal ileum biopsy. The specimen consists of two irregular fragments of light shaikh soft tissue that in aggregate measure 0.5 x 0.3 x 0.1 cm. The specimen is totally submitted in one cassette. F - Received in fixative is one container labeled with the patient's name and designated cecum biopsy. The specimen consists of one irregular fragment of light shaikh soft tissue that measures 0.3 x 0.3 x 0.1 cm. The specimen is totally submitted in one cassette. / SJ:rg 09/10/2021 TC:3 CPT: 97510 x6, [id number]
--- NOTE | 2021-09-10 07:00 | IMM_PTH ---
PATIENT: CASSANDRA GUERRIER LOC: EN U#:[id number] AGE/SX: 40/F ROOM: RE09/10/[address]: Dr. Philippe Leonardo DO : 1980 BED: DIS: 09/10/2021 SPEC #: [id number] RECD: 09/10/21 13:16 STATUS: MADHAVI REHaris #: [id number] STANISLAV: 09/10/21 07:[address]: Philippe Leonardo DEPT: IMMUNOHISTOCHEMISTRY RECD BY: Skye Loja ENTERED: 09/10/21 13:16 SP TYPE: IMMUNO OTHR DR: Dr. Zena Pak MD Tissues: C - Stomach, NOS Procedures: H Pylori (initial) PHYSICIAN & INSTITUTION [place] [id number] SPECIMEN INFORMATION: Tissue Source: C ? Antrum biopsy Clinical Info: Epigastric pain, change in stool, nausea, hepatomegaly, anorexia Specimen Number: [id number] CPT code: 43117 METHODOLOGY: Deparaffinized sections of prefer/formalin-fixed tissue or PAP/DQ stained slides are incubated with monoclonal/polyclonal antibodies/oligonucleotide probes. Localization is made via biotin free immunoperoxidase method. Appropriate controls are performed and reacted as expected. Results on target cell population are indicated in the following table: RESULTS: ANTIBODY / CLONE RESULT Block C H Pylori (polyclonal) negative These tests were developed and their performance characteristics determined by [facility]. They may not have been cleared or approved by the U.S. Food and Drug Administration. The FDA has determined that such clearance or approval is not necessary. The above immunohistochemical/dualISH markers are ordered and reviewed by the Pathologist. INTERPRETATION: C. Antrum, biopsy: Negative for Helicobacter pylori organisms. SJ:emperatriz 09/11/2021
--- NOTE | 2021-09-10 07:47 | OP.EGD_ITS ---
Patient Name: Dot Coronado Procedure Date: 09/10/2021 7:03 AM Date of : 1980 Age: 40 Procedure: Upper GI endoscopy Indications: Epigastric abdominal pain, Heartburn, Suspected non-erosive esophageal reflux, Chest pain (non cardiac) Providers: Philippe Leonardo DO Medicines: Monitored Anesthesia Care Patient Profile: This is a 40 year old female. Refer to note in patient chart for documentation of history and physical. Patient has symptoms. Complications: No immediate complications. Procedure: Pre-Anesthesia Assessment: - Prior to the procedure, a History and Physical was performed, and patient medications and allergies were reviewed. The risks and benefits of the procedure and the sedation options and risks were discussed with the patient. All questions were answered and informed consent was obtained. Patient identification and proposed procedure were verified by the physician in the pre-procedure area. Mental Status Examination: alert and oriented. Airway Examination: normal oropharyngeal airway and neck mobility. Respiratory Examination: clear to auscultation. CV Examination: normal. Prophylactic Antibiotics: The patient does not require prophylactic antibiotics. Prior Anticoagulants: The patient has taken no previous anticoagulant or antiplatelet agents. ASA Grade Assessment: II - A patient with mild systemic disease. After reviewing the risks and benefits, the patient was deemed in satisfactory condition to undergo the procedure. The anesthesia plan was to use moderate sedation / analgesia (conscious sedation). Immediately prior to administration of medications, the patient was re-assessed for adequacy to receive sedatives. The heart rate, respiratory rate, oxygen saturations, blood pressure, adequacy of pulmonary ventilation, and response to care were monitored throughout the procedure. The physical status of the patient was re-assessed after the procedure. After obtaining informed consent, the endoscope was passed under direct vision. Throughout the procedure, the patient's blood pressure, pulse, and oxygen saturations were monitored continuously. The Colonoscope was introduced through the mouth, and advanced to the second part of duodenum. The upper GI endoscopy was accomplished without difficulty. The patient tolerated the procedure well. Scope In: 7:13:31 AM Scope Out: 7:19:58 AM Total Procedure Duration Time 0 hours 6 minutes 27 seconds Findings: The Z-line was irregular and was found 38 cm from the incisors. Biopsies were taken with a cold forceps for histology. Verification of patient identification for the specimen was done. Estimated blood loss was minimal. Patchy mildly erythematous mucosa without bleeding was found in the gastric antrum and at the pylorus. Biopsies were taken with a cold forceps for histology. Verification of patient identification for the specimen was done Patchy mildly erythematous mucosa without active bleeding and with no stigmata of bleeding was found in the duodenal bulb. Biopsies were taken with a cold forceps for histology. Verification of patient identification for the specimen was done. Estimated blood loss was minimal. Impression: - Z-line irregular, 38 cm from the incisors. Biopsied. - Erythematous mucosa in the antrum and pylorus. Biopsied. - Erythematous duodenopathy. Biopsied. Recommendation: - Discharge patient to home. - Resume previous diet. - Continue present medications. - Await pathology results. Procedure Code(s): --- Professional --- 01402, Esophagogastroduodenoscopy, flexible, transoral; with biopsy, single or multiple CPT copyright 2017 [employer]. All rights reserved. The codes documented in this report are preliminary and upon disability case manager review may be revised to meet current compliance requirements. Philippe Leonardo DO 09/10/2021 7:47:19 AM This report has been signed electronically. Number of Addenda: 1 Note Initiated On: 09/10/2021 7:03 AM Addendum Number: 1 Addendum Date: 12/10/2021 6:30:29 AM MAC was used as sedation for this procedure. Philippe Leonardo DO 12/10/2021 6:30:35 AM This report has been signed electronically.
--- NOTE | 2021-09-10 07:48 | OP.CCLET_ITS ---
12/10/2021 Zena Pak [address] [place] [address] Re : Upper GI endoscopy procedure for Dot Coronado Dear Dr. Pak This procedure was performed on Friday, September 10, 2021. My impressions and recommendations are as follows: Impressions : - Z-line irregular, 38 cm from the incisors. Biopsied. - Erythematous mucosa in the antrum and pylorus. Biopsied. - Erythematous duodenopathy. Biopsied. Recommendations : - Discharge patient to home. - Resume previous diet. - Continue present medications. - Await pathology results. My findings are described in the full procedure note, which is enclosed. If I can be of further assistance, please feel free to contact me at . Sincerely, Philippe Leonardo, 09/10/2021 7:47:19 AM This report has been signed electronically.
--- NOTE | 2021-09-10 07:55 | OP.CCLET_ITS ---
12/10/2021 Zena Pak [address] [place] [address] Re : Colonoscopy procedure for Dot Coronado Dear Dr. Pak This procedure was performed on Friday, September 10, 2021. My impressions and recommendations are as follows: Impressions : - Congested mucosa in the cecum. Biopsied. - Congested mucosa in the distal ileum. Biopsied. Recommendations : - Written discharge instructions were provided to the patient. - The signs and symptoms of potential delayed complications were discussed with the patient. - Patient has a contact number available for emergencies. - Return to normal activities tomorrow. - Resume previous diet. - Repeat colonoscopy is recommended for surveillance. The colonoscopy date will be determined after pathology results from today's exam become available for review. - Continue present medications. My findings are described in the full procedure note, which is enclosed. If I can be of further assistance, please feel free to contact me at . Sincerely, Philippe Leonardo, 09/10/2021 7:54:34 AM This report has been signed electronically.
--- NOTE | 2021-09-10 07:55 | OP.COLON_ITS ---
Patient Name: Dot Coronado Procedure Date: 09/10/2021 7:20 AM Date of : 1980 Age: 40 Procedure: Colonoscopy Indications: Epigastric abdominal pain, Abdominal pain in the left lower quadrant, Periumbilical abdominal pain, Epigastric abdominal distress, Incidental change in bowel habits noted Providers: Philippe Leonardo DO Medicines: Monitored Anesthesia Care Patient Profile: This is a 40 year old female. Refer to note in patient chart for documentation of history and physical. Patient has symptoms. Last Colonoscopy: none. The patient's first colonoscopy is today. Complications: No immediate complications. Procedure: Pre-Anesthesia Assessment: - Prior to the procedure, a History and Physical was performed, and patient medications and allergies were reviewed. The risks and benefits of the procedure and the sedation options and risks were discussed with the patient. All questions were answered and informed consent was obtained. Patient identification and proposed procedure were verified by the physician in the pre-procedure area. Mental Status Examination: alert and oriented. Airway Examination: normal oropharyngeal airway and neck mobility. Respiratory Examination: clear to auscultation. CV Examination: normal. Prophylactic Antibiotics: The patient does not require prophylactic antibiotics. Prior Anticoagulants: The patient has taken no previous anticoagulant or antiplatelet agents. ASA Grade Assessment: II - A patient with mild systemic disease. After reviewing the risks and benefits, the patient was deemed in satisfactory condition to undergo the procedure. The anesthesia plan was to use moderate sedation / analgesia (conscious sedation). Immediately prior to administration of medications, the patient was re-assessed for adequacy to receive sedatives. The heart rate, respiratory rate, oxygen saturations, blood pressure, adequacy of pulmonary ventilation, and response to care were monitored throughout the procedure. The physical status of the patient was re-assessed after the procedure. After I obtained informed consent, the scope was passed under direct vision. Throughout the procedure, the patient's blood pressure, pulse, and oxygen saturations were monitored continuously. The Colonoscope was introduced through the anus and advanced to the terminal ileum. The colonoscopy was performed without difficulty. The patient tolerated the procedure well. The quality of the bowel preparation was good. Scope In: 7:22:21 AM Scope Withdrawal Time 0 hours 10 minutes 1 second Scope Out: 7:36:57 AM Total Procedure Duration Time 0 hours 14 minutes 36 seconds Findings: The perianal and digital rectal examinations were normal. An area of mildly congested mucosa was found in the cecum. Biopsies were taken with a cold forceps for histology. Verification of patient identification for the specimen was done. Estimated blood loss was minimal. A localized area of the distal ileum was congested. Biopsies were taken with a cold forceps for histology. Verification of patient identification for the specimen was done. Estimated blood loss was minimal. No additional abnormalities were found on retroflexion. Impression: - Congested mucosa in the cecum. Biopsied. - Congested mucosa in the distal ileum. Biopsied. Recommendation: - Written discharge instructions were provided to the patient. - The signs and symptoms of potential delayed complications were discussed with the patient. - Patient has a contact number available for emergencies. - Return to normal activities tomorrow. - Resume previous diet. - Repeat colonoscopy is recommended for surveillance. The colonoscopy date will be determined after pathology results from today's exam become available for review. - Continue present medications. Procedure Code(s): --- Professional --- 47554, Colonoscopy, flexible; with biopsy, single or multiple CPT copyright 2017 [employer]. All rights reserved. The codes documented in this report are preliminary and upon wheelage clerk review may be revised to meet current compliance requirements. Philippe Leonardo DO 09/10/2021 7:54:34 AM This report has been signed electronically. Number of Addenda: 1 Note Initiated On: 09/10/2021 7:20 AM Addendum Number: 1 Addendum Date: 12/10/2021 6:30:43 AM MAC was used as sedation for this procedure. Philippe Leonardo DO 12/10/2021 6:30:46 AM This report has been signed electronically.
== END 2021-09-10 08:29 | disposition home or self-care (01) ==
LOC: EN 05:49 → AC 05:50
PROVIDERS: Anesthesiology; PCP Internal Medicine; Referring Provider Internal Medicine; Visit Provider Internal Medicine Gastroenterology
PROC: 0DJD8ZZ Inspection of Lower Intestinal Tract, Via Natural or Artificial Opening Endoscopic (ICD-10-PCS; CPT 45378; principal; 2021-09-10 06:55)
DX: K63.89 Other specified diseases of intestine (principal); K29.50 Unspecified chronic gastritis without bleeding; K31.89 Other diseases of stomach and duodenum; K52.9 Noninfective gastroenteritis and colitis, unspecified; K21.9 Gastro-esophageal reflux disease without esophagitis; R63.4 Abnormal weight loss; E03.9 Hypothyroidism, unspecified; Z79.899 Other long term (current) drug therapy; Z68.20 Body mass index [BMI] 20.0-20.9, adult
CPT/HCPCS: 45380; 43239; 81025; 88305; 88313; 88342; J7120; J2405

== ENCOUNTER → 2021-09-26 | Outpatient (CLI) | payer BC, SELFPAY ==
--- NOTE | 2021-09-26 09:47 | NM_ITS ---
NUCLEAR BILIARY SCAN CLINICAL: Female, 41 years old. HISTORY: Cholelithiasis pain. TECHNIQUE: Following the intravenous administration of 5.5 mCi of Tc Mebrofenin, hepatobiliary images was performed. 8oz. BOOST given for fatty meal COMPARISON STUDIES : NM - None. CR - Not available for review at this time. CT - Not available for review at this time. MR - Not available for review at this time. US - Not available for review at this time. FINDINGS: Relatively prompt and homogeneous radiopharmaceutical concentration is noted by a normal sized liver. There are no parenchymal defects noted. Gallbladder activity is identified at in minutes 10 post radiopharmaceutical administration. . Small bowel activity is identified at 30 minutes post radiopharmaceutical administration. Washout of the radiopharmaceutical by the hepatic parenchyma occurs in a normal fashion on qualitative inspection. The post gallbladder ejection fraction is calculated at 30 minutes following administration was noted to be 73% (normal greater than 35%). NM/Hepatobilliary Img w/Pharm Int IMPRESSION: Normal 99m TC Mebrofenin hepatobiliary imaging survey with fatty meal. Electronically Signed: Jerry Ferrera MD at 16:00 EDT ,
== END | disposition home or self-care (01) ==
PROVIDERS: PCP Internal Medicine; Referring Provider Nurse Practitioner Adult Health; Visit Provider Nurse Practitioner Adult Health
DX: R10.13 Epigastric pain (principal); R11.0 Nausea; K82.4 Cholesterolosis of gallbladder
CPT/HCPCS: 78227; A9537

== ENCOUNTER → 2021-10-01 | Outpatient (CLI) | payer BC, SELFPAY ==
[2021-10-03 19:50] LABS: Gastrin, Serum 48 pg/mL (0-115)
== END | disposition home or self-care (01) ==
LOC: LAB 09:35
PROVIDERS: PCP Internal Medicine; Referring Provider Nurse Practitioner Adult Health; Visit Provider Nurse Practitioner Adult Health
DX: R10.13 Epigastric pain (principal)
CPT/HCPCS: 36415; 82941

== ENCOUNTER → 2021-10-15 | Outpatient (CLI) | payer BC, SELFPAY ==
--- NOTE | 2021-10-15 10:20 | NM_ITS ---
CLINICAL: 41-year-old female with history of abdominal pain-bloating. SEMI-SOLID PHASE 99m Tc SULFUR COLLOID GASTRIC EMPTYING STUDY COMPARISON: Hepatobiliary scintigraphy study dated 09/26/2021 FINDINGS: The patient was administered 1.1 mCi of 99m Tc sulfur colloid mixed with oatmeal and consumed per os. Image acquisitions in the anterior -posterior projections were obtained for 60 minutes. There is prompt visualization of the stomach. There is no gastroesophageal reflux identified. The T ? emptying was calculated to be 46.93 minutes, (Normal: 12-56 minutes). NM/Gastric Emptying Study IMPRESSION: 1. NORMAL 99m Tc sulfur colloid semi-solid phase (oatmeal) gastric emptying imaging examination. A. There is normal and preserved semi-solid phase gastric emptying compared to normal controls. (Sabino et al, J Nucl Med Tech 38: 186, 2010). Electronically Signed: Juan Jose Josue, at 21:24 EDT ,
== END | disposition home or self-care (01) ==
LOC: NM 10:18
PROVIDERS: PCP Internal Medicine; Referring Provider Nurse Practitioner Adult Health; Visit Provider Nurse Practitioner Adult Health
DX: R68.81 Early satiety (principal)
CPT/HCPCS: 78264; A9541

== ENCOUNTER → 2021-10-20 | Outpatient (CLI) | payer BC, SELFPAY ==
[2021-10-20 11:35] LABS: Hematocrit 39.2 % (37-47); Hemoglobin 12.6 g/dL (12.0-15.0); Mean Corp Hgb Conc 32.1 g/dL (32-36); Mean Corpuscular Volume 93.3 fL (81-99); Mean Platelet Vol. 10.2 fl (6.2-12.0); Platelet Count 284 K/mm3 (150-450); RBC Distribution Width CV 12.2 % (11.6-14.6); RBC Distribution Width SD 41.8 fl (35.1-43.9); White Blood Count 2.8 K/mm3 (4.4-11.0)
== END | disposition home or self-care (01) ==
LOC: WOBLAB 10:03
PROVIDERS: PCP Internal Medicine; Visit Provider Student in an Organized Health Care Education/Training Program
DX: Z01.812 Encounter for preprocedural laboratory examination (principal)
CPT/HCPCS: 36415; 85027; 86850; 86900; 86901

== ENCOUNTER 2021-10-23 05:59 | Day surgery (SDC) | payer BC, SELFPAY ==
[2021-10-23] VITALS (9 sets, daily range): BP systolic 102–118; BP diastolic 76–87; PULSE 50–75; RESP 14–18; TEMP 36.2–36.7; O2SAT 96–100; BMI 21.1
--- NOTE | 2021-10-23 06:35 | PCM.HP.BLA ---
History and Physical Date of Admission: 10/23/21 HPI: For hysteroscopy, dilation and curettage, endometrial ablation with Mare Date of Surgery: 10/23/21 Reason for surgery: abnormal bleeding. ROS: Const: Denies fatigue, fever, hot flashes, insomnia, weight gain and weight loss. CV: Denies irregular heartbeat, pain and shortness of breath. Resp: Denies difficulty breathing, cough and shortness of breath. : Denies abnormal bleeding, bloating, decreased interest in sex and pruritus. Lochia: Patient denies any discharge or clotting. Denies dysuria, frequency, hematuria, nocturia, urgency and urinary leakage. Neuro: Denies dizziness, fainting and seizures. Danny/Lymph: Denies easy bleeding and excessive bleeding. Allergy/Immuno: Denies new allergies. Meds Prior to Visit: Levothyroxine Sodium 125 mcg 1 tab by mouth every day Pantoprazole Sodium 40 mg 1 tab by mouth twice a day Sucralfate 1 gm/10ml 10 ml by mouth before meals at bedtime Ursodiol 300 mg 1 tab by mouth twice a day Vitamin E-400 400 Unit 1 tab by mouth twice a day Allergies: NKDA PMH: 1. Hypothyroidism 2. 's Esophagus : (3).Parity: Full term (3). Menstrual History:Menarche: started at age 10. LMP: 10/14/2021.Period Interval: Cycles Irregularly, irregular frequency since breast feeding + control in past 2yrs.Period Duration: Normally Last 5-7 Days.Period Flow: Heavy In The Beginning, Heavy In The Middle, Light At The End.Menstrual Symptoms: Clotting During Menstruation, Cramps During Menstruation, Fatigue During Menstruation. Self Care: Health Maintenance: Pap Smear Mammogram - (02/2021) Colonoscopy Contraceptive Method: Past methods used include oral contraceptives, Current methods used include oral contraceptives Menopausal History:. (Age of Menopause) (Menopausal Hx Free Text) (Surgeries) . (Anesthesia Complication) Reviewed, no changes. Family History Father: Prostate Cancer - dx approximately in 50's. Paternal Grandfather: Prostate Cancer - dx age 65 Myocardial Infarction ([place]) - 50-60's. Maternal Grandfather: Myocardial Infarction ([place]) - approximately in 60's. Reviewed, no changes. SH: Personal Habits:Tobacco Use: Patient has never smoked.Alcohol: Denies alcohol use.Drug Use: Never Used Drugs.Daily Caffeine: Consumes on average 1 cup of regular coffee per day. Sexual Hx:STDS: No STD History.Additional Info: sexually active Reviewed, no changes. BP: 115/80 Ht: 64.5 5'4.50 Wt: 124lb Wt Prior: 133lb 0oz as of 06/06/21 Wt Dif: -9lb BMI: 21.0 LMP: 10/14/21 Exam: Const: Appears healthy and well developed. No signs of acute distress present. Alert and oriented x 3. Patient is well behaved and cooperative. Eyes: Pupils equal, round and reactive to light. Resp: Respiration rate is normal. Inspection of chest reveals AP is unremarkable and no chest wall deformity. CV: Rate is regular. Rhythm is regular. Abdomen: Abdomen is soft, nontender, and nondistended without guarding, rigidity, rebound tenderness or organomegaly. Integumentary: Skin warm and dry with no evidence of unusual rashes or suspicious lesions. Hair appears normal. Assessment/Plan: Planned for hysteroscopy, dilation and curettage, symphion polypectomy, endometrial ablation with Mare for abnormal uterine bleeding and endometrial polyp. Laparoscopic bilateral salpingectomy for abnormal uterine bleeding, desires sterilization. All risks/benefits/alternatives discussed. Risks include, but are not limited to: risk of bleeding to the point of transfusion, infection, injury to surrounding tissue (bowel/bladder/major abdominal vessels/uterine perforation), VTE, ICU admission. Pt aware and consented. All questions answered.
[2021-10-23 06:42] LABS: Internal QC Validated? YES +Cl - CLEAR BKGD; Pregnancy, Urine Negative Negative
[2021-10-23] MEDS: Lactated Ringers 1,000 ML 15 ML IV (06:43)
[2021-10-23] MEDS: Sodium Citrate/Citric Acid 30 ML UDC PO (07:05)
--- NOTE | 2021-10-23 07:30 | EMB_PTH ---
PATIENT: DOT GUERRIER LOC: [facility] [place] U#:[id number] AGE/SX: 41/F ROOM: RE10/23/[address]: Dr. Dot Ragland DO : 1980 BED: DIS: 10/23/2021 SPEC #: [id number] RECD: 10/23/21 09:55 STATUS: MADHAVI REHaris #: [id number] STANISLAV: 10/23/21 07:[address]: Dot Ragland DEPT: SURGICAL PATHOLOGY RECD BY: Filomena Fowler ENTERED: 10/23/21 11:26 SP TYPE: ENDOM BX/C SILVINA DR: Dr. Zena Pak MD Tissues: Endometrium, NOS Procedures: Surgery Specimen Level IV HEADER OPERATION: Hysteroscopy, D&C Mare garza, polypectomy PRE-OP DIAGNOSIS: Abnormal uterine bleeding TISSUE SUBMITTED: Endometrial polyp MICROSCOPIC DIAGNOSIS Endometrium, biopsy: Polypoid simple hyperplasia without atypia. Mild chronic endometritis. AM: am 10/24/2021 MICROSCOPIC DESCRIPTION Slides are reviewed. GROSS DESCRIPTION Received in formalin is one container labeled with the patient name and designated endometrial poly. The specimen consists of multiple fragments of shaikh soft tissue measuring in aggregate 5 x 3 x 0.3 cm. The specimen is totally submitted in two cassettes. / SJ:gagandeep 10/23/21 TC:5 CPT:47687
--- NOTE | 2021-10-23 07:41 | DCINST_ITS ---
Discharge Instructions Diet Discharge Diet: No restrictions Activity Discharge Activity: Return to Normal Activity and May Shower May resume sexual activity in: 2 weeks Weight Bearing Status: Weight bearing as tolerated Lifting Restrictions: None Dressing / Incision Call your doctor if you observe: Fever of 101 or Higher, Change in Color, Inability to urinate, Using more than 1 pad per hour, Shortness of breath, Dizziness, Swelling in the ankles, Chest pain and Calf discomfort Follow Up Care Please Follow Up With: Dot Ragland DO When: 1-2 week postoperative visit Test Results: Test results from this visit will be discussed in further detail at your follow- up appointment, if applicable. Discharge Plan Admission Primary Reason for Your Visit: Ablation Attending Provider: Dot Ragland Primary Care Provider: Zena Pak Discharge Orders/Prescriptions Prescriptions: No Action pantoprazole 40 mg tablet,delayed release (DR/EC) 40 mg PO BID Qty: 60 2RF sucralfate 100 mg/mL suspension 10 ml PO QACHS 30 Days Qty: 1200 1RF norgestimate-ethinyl estradiol [Sprintec (28)] 0.25-35 mg-mcg tablet 1 tab PO DAILY levothyroxine 125 mcg Tablet 125 mcg PO DAILY ursodiol 300 mg capsule 300 mg PO BID Qty: 180 3RF Referrals / Follow Up: Zena Pak MD [Primary Care Provider] - Disposition Disposition (needs filled in before D/C Order can be placed): Home, Self Care
--- NOTE | 2021-10-23 07:41 | PCM.OPRPT ---
Report of Operation Date of Procedure: 10/23/21 Pre-Operative Diagnosis: Abnormal uterine bleeding Post-Operative Diagnosis: Abnormal uterine bleeding Surgery/Procedure Performed:: Hysteroscopy, cervical dilation, endometrial polypectomy with Symphion, endometrial ablation with Mare Description of Surgical Findings:: Normal-appearing external genitalia. Normal appearing cervix, cervix slightly dilated. Posterior endometrial polyp, smooth appearance. Type of Anesthesia: MAC Specimen's removed: Endometrial polyp Estimated Blood Loss (mL): 5cc Fluids Replaced: 600cc Description of Procedure: Indication/risk/benefit: 41-year-old female with abnormal uterine bleeding and endometrial polyp plan for hysteroscopy, dilation curettage, polypectomy, endometrial ablation. All risk, benefits, alternatives discussed the patient. Risk include, but are not limited to: Risk of bleeding to the point transfusion, infection, injury to surrounding tissue including bowel/bladder/uterine perforation, VTE, ICU admission. Patient aware and consented. Procedure: Patient taken to the operating room, MAC anesthesia induced. Patient placed in the dorsal lithotomy position and prepped and draped in the usual sterile fashion. Weighted speculum placed in the posterior vagina and Thomason retractor used to visualize the cervix. Anterior lip of the cervix grasped with single-tooth tenaculum. Cervix noted to be slightly dilated, dilated further. Uterus sounded to 9 cm. Hysteroscope placed through cervical canal, endometrial cavity examined with findings as stated above. Symphion device open. Utilized to remove polyp in etirety. Symphion device and hysteroscope removed. Cervical length measured at 4 cm. Mare device opened. Device placed and deployed, cavity length set at 5 cm. Passed cavity assessments. Ablation completed. Mare device removed. Single-tooth tenaculum removed. Tenaculum sites hemostatic. Weighted speculum removed. At the end of procedure all needle, lap, sponge counts were correct. Urine output not measured. Fluid deficit: 250cc Complications none
[2021-10-23] MEDS: HYDROcodone Bitartrate/Apap 5/325 Tablet PO (09:49)
== END 2021-10-23 10:13 | disposition home or self-care (01) ==
LOC: SDC 06:03 → AC 06:04
PROVIDERS: Anesthesiology; PCP Internal Medicine; Visit Provider Student in an Organized Health Care Education/Training Program
PROC: 0UB98ZZ Excision of Uterus, Via Natural or Artificial Opening Endoscopic (ICD-10-PCS; CPT 58558; principal; 2021-10-23 07:15)
DX: N71.1 Chronic inflammatory disease of uterus (principal); N93.9 Abnormal uterine and vaginal bleeding, unspecified; Z78.0 Asymptomatic menopausal state; K21.9 Gastro-esophageal reflux disease without esophagitis; E03.9 Hypothyroidism, unspecified
CPT/HCPCS: 58563; 00952; 58558; 81025; 88305; J7120; J2405

== ENCOUNTER 2021-12-25 17:27 | Observation (INO) | payer BC, SELFPAY ==
[2021-12-17 11:33] LABS: Hemoglobin 11.5 g/dL (12.0-15.0); Mean Corp Hgb Conc 31.1 g/dL (32-36); Mean Corpuscular Hgb 29.5 pg (27.0-32.0); Mean Corpuscular Volume 94.9 fL (81-99); Mean Platelet Vol. 9.6 fl (6.2-12.0); Platelet Count 258 K/mm3 (150-450); RBC Distribution Width CV 13.5 % (11.6-14.6); RBC Distribution Width SD 46.9 fl (35.1-43.9); White Blood Count 3.4 K/mm3 (4.4-11.0)
[2021-12-22 10:09] LABS: Magnesium 2.3 mg/dL (1.6-2.6)
[2021-12-25] VITALS (17 sets, daily range): BP systolic 79–119; BP diastolic 45–81; PULSE 55–86; RESP 15–18; TEMP 36.2–37.2; O2SAT 98–100; BMI 21.5; BMI 21.4
[2021-12-25 06:10] LABS: Internal QC Validated? YES +Cl - CLEAR BKGD; Pregnancy, Urine Negative Negative
[2021-12-25] MEDS: Magnesium 1 GM over 15 mins IV (06:36)
[2021-12-25] MEDS: Lactated Ringers 1,000 ML 40 ML IV ×3 (06:36→11:09)
[2021-12-25] MEDS: Acetaminophen 500 MG Tablet 1000 MG PO ×2 (06:40→18:46)
[2021-12-25] MEDS: Gabapentin 600 MG Tablet PO (06:40)
--- NOTE | 2021-12-25 06:58 | HP.PCM.OB_ITS ---
History and Physical Date of Admission: 12/25/21 HPI: 41-year-old female plan for total laparoscopic hysterectomy, bilateral salpingectomy, cystoscopy for benign hyperplasia. Denies headache, vision changes, chest pain or shortness of breath, nausea or vomiting, diarrhea constipation, fevers or chills. Medical history: 1. Hypothyroidism 2. GERD Medications: 1. Synthroid 2. Depo-Provera 3. Pantoprazole 4. Sucralfate 5. Ursodiol 6. Vitamin E Surgical history: 1. Hysteroscopy, dilation curettage, ablation Allergies: No known drug allergies Family history: Noncontributory, [place] Social history: Denies tobacco, alcohol, drug use Physical exam: BP: 109/81, HR 79, RR 18, O2 Sat 100% RA General: No acute distress HEENT: Normocephalic/atraumatic, PERRLA Cardiac: Regular rate and rhythm Lungs: Clear to auscultation bilaterally Abdomen: Soft, nontender, nondistended Extremities: No edema Musculoskeletal: Strength 5 out of 5 throughout all extremities Neurologic: Cranial nerves II through XII grossly intact, no focal deficits Assessment/plan: 41-year-old female plan for total laparoscopic hysterectomy, bilateral salpingectomy, cystoscopy for benign hyperplasia. All risk, benefits, terms discussed the patient. Risk include but are not limited to: Risk of bleeding to the point transfusion, infection, injury to stevan rounding tissue including bowel/bladder/major abdominal vessels, VTE, ICU admission. Patient aware and consented.
[2021-12-25 07:10] LABS: Bedside Glucose 77 mg/dL (74-106)
[2021-12-25] MEDS: Cefazolin 2 GM in 0.9% Normal Saline 100 ML IV (07:23)
--- NOTE | 2021-12-25 07:28 | DCINST_ITS ---
Discharge Instructions Diet Discharge Diet: No restrictions Activity Discharge Activity: Return to Normal Activity and May Shower May resume sexual activity in: 6 weeks Weight Bearing Status: Weight bearing as tolerated Lifting Restrictions: No greater than 25 pounds Dressing / Incision Call your doctor if your incision/area has: Continuous Slow Oozing, Increased Redness and Foul Smelling Discharge Call your doctor if you observe: Fever of 101 or Higher, Inability to urinate, Inability to have a bowel movement, Using more than 1 pad per hour, Shortness of breath, Swelling in the ankles, Chest pain and Uncontrolled pain Cleanse incision/area with: Soap & Water and Keep Dressing Clean & Dry Follow Up Care Please Follow Up With: Dot Ragland DO When: 2 weeks post operative appointment Test Results: Test results from this visit will be discussed in further detail at your follow- up appointment, if applicable. Discharge Plan Admission Primary Reason for Your Visit: Hysterectomy Attending Provider: Dot Ragland Primary Care Provider: Zena Pak Discharge Orders/Prescriptions Prescriptions: New oxycodone 5 mg tablet 5 mg PO Q6H PRN (Reason: pain (scale score 7-10)) 5 Days Qty: 24 0RF Continued levothyroxine 125 mcg Tablet 125 mcg PO DAILY ursodiol 300 mg capsule 300 mg PO BID Qty: 180 3RF pantoprazole 40 mg tablet,delayed release (DR/EC) 40 mg PO BID Qty: 180 0RF Discontinued norgestimate-ethinyl estradiol [Sprintec (28)] 0.25-35 mg-mcg tablet 1 tab PO DAILY Referrals / Follow Up: Zena Pak MD [Primary Care Provider] - Disposition Disposition (needs filled in before D/C Order can be placed): Home, Self Care
--- NOTE | 2021-12-25 07:28 | OP.PCM_ITS ---
Report of Operation Date of Procedure: 12/25/21 Pre-Operative Diagnosis: Benign hyperplasia Post-Operative Diagnosis: Benign hyperplasia Surgery/Procedure Performed:: Total laparoscopic hysterectomy, bilateral salpingectomy, cystoscopy Description of Surgical Findings:: Normal-appearing external genitalia. Minimal uterine descensus. Normal- appearing bilateral tubes and ovaries. Normal-appearing uterus. Some adhesions anteriorly bladder to anterior uterus and cervix Type of Anesthesia: General Specimen's removed: Uterus and cervix, bilateral fallopian tubes Estimated Blood Loss (mL): 50 cc Fluids Replaced: 1600 cc Description of Procedure: Indication/risk/benefit: 41-year-old female with benign hyperplasia plan for total laparoscopic hysterectomy, bilateral salpingectomy, cystoscopy. All risk, benefits, alternatives discussed with patient. Risk clued but are not limited to: Risk of bleeding twin transfusion, infection, injury to surrounding tissue including bowel/bladder/major abdominal vessels, VTE, ICU admission. Patient aware and consented. Procedure: Patient taken to the operating room placed under general anesthesia. Patient placed in the dorsal lithotomy position prepped and draped in the usual sterile fashion. Farmer catheter placed. Weighted speculum placed in the posterior vagina and Thomason retractor used to visualize cervix. Anterior lip of cervix grasped single-tooth tenaculum. Cervix sequentially dilated. Pbbymi-wk-whgzx stitch placed in cervix at the 3 and 9 o'clock position. Medium uterine manipulator placed. Gloves were changed and attention turned to the anterior abdominal wall. 2 cm vertical supraumbilical incision made with scalpel. Fascia cleared with blunt dissection. Fascia grasped with 2 Nura clamps and incised between with scalpel. Stitch placed at fascial edges to tag. Peritoneum grasped and incised using scalpel. Peritoneum entered. Trocar placed. Abdomen insufflated. Right and left lower quadrant trochars placed under direct visualization. Bilateral ureters identified. Left fallopian tube identified from cornua to fimbriated end. Grasped at fimbriated end and was removed along the mesosalpinx using bipolar cautery. Round ligament identified and incised using monopolar cautery. Vesicouterine peritoneum identified but not dissected at this time. Right fallopian tube identified from cornua to fimbriated end. Fallopian tube removed along the mesosalpinx to the cornua using bipolar cautery. Right round ligament dissected using monopolar cautery. Vesicouterine peritoneum on this side identified and dissection carried down towards the anterior cervix. Left utero-ovarian ligament coagulated and cut. Dissection carried down the left side of the uterus to the level of the uterine arteries. Right utero-ovarian ligament coagulated and cut with dissection carried down towards the right uterine arteries in a similar fashion. Further dissection of the bladder flap was completed. This was done using monopolar cautery and blunt dissection. Vesicouterine peritoneum appeared to be adhesed to the anterior uterus and cervix at the midline. Careful dissection was completed allowing the bladder to fall away from the anterior cervix. Right uterine arteries coagulated with bipolar cautery and incised allowing them to fall away from the colpotomy cup. Left uterine artery was coagulated and cut in a similar fashion again allowing them to fall away from the colpotomy cup. Uterus was then anteverted and posterior colpotomy was started. This was then completed circumferentially. Uterus and tubes removed through the vagina. No active bleeding noted in the pelvis. Abdomen desufflated. Colpotomy then closed vaginally. Vagina grasped with Allis clamps at either angle. Colpotomy was then closed from either side joining to tie at the midline. 1 qoulxv-rl-pwyui stitch placed near the right angle to complete colpotomy closure. Vagina irrigated with no noticeable bleeding. Cystoscopy then completed. Cystoscope placed through the urethra. Noting intact bladder dome and bilateral ureteral jets. Cystoscope removed. Gloves were changed and abdomen reinsufflated for inspection. Hemostasis noted. Abdomen desufflated. Trochars removed. Fascia closed with a running stitch at the supraumbilical incision. Skin closed with subcuticular stitch and skin glue. At the end of the procedure all needle, lap, sponge counts were correct. Urine output: 300 cc clear urine Complications None
--- NOTE | 2021-12-25 07:30 | HYST_PTH ---
PATIENT: DOT GUERRIER LOC: [id number] U#:[id number] AGE/SX: 41/F ROOM: [facility] [place] RE12/25/[address]: Dr. Dot Ragland DO : 1980 BED: 1 DIS: 12/26/2021 SPEC #: [id number] RECD: 12/25/21 11:05 STATUS: MADHAVI REHaris #: [id number] STANISLAV: 12/25/21 07:[address]: Dot Ragland DEPT: SURGICAL PATHOLOGY RECD BY: Filomena Fowler ENTERED: 12/25/21 11:41 SP TYPE: HYSTERECT OTHR DR: Dr. Zena Pak MD Tissues: Uterus, NOS Procedures: Surgery Specimen Level V HEADER OPERATION: ERAS, hysterectomy, TLH, salpingectomy, cysto PRE-OP DIAGNOSIS: Benign hyperplasia TISSUE SUBMITTED: Uterus, cervix, bilateral fallopian tubes MICROSCOPIC DIAGNOSIS Uterus, hysterectomy: Cervix ? squamous metaplasia and minimal chronic inflammation. Endometrium ? focal intraductal hyperplasia without atypia. Most of endometrial surface is denuded. Myometrium - No pathologic change. Right fallopian tube - No pathologic change. Left fallopian tube - No pathologic change. AM:emperatriz 12/26/2021 MICROSCOPIC DESCRIPTION Slides are reviewed. GROSS DESCRIPTION Received in fixative is one container labeled with the patient's name and designated uterus. The specimen consists of a uterus with attached cervix and attached right and left fallopian tubes. The uterus with cervix measures 7.5 x 6.5 x 4.8 cm and weighs 92 gm. The ectocervix is grossly unremarkable. The cervical os is oval in contour. The endocervical canal measures 2.8 cm in length and is grossly unremarkable. The triangular endometrial cavity measures 3 x 2.5 cm. The endometrium measures 0.2 cm in thickness. The myometrium measures 2 cm in average thickness and is free of mass lesions. The right and left fallopian tubes are similar in appearance with average lengths of 8 cm and average diameters of 0.7 cm. Normal fimbrial ends are present. Currency Machine Operator sections are submitted in ten cassettes as follows: 1 - anterior cervix, 2 - posterior cervix, 3-5 - anterior endometrium and adjacent myometrium, 6-8 - posterior endometrium and adjacent myometrium, 9 - right fallopian tube, 10 - left fallopian tube. Note, the entire endometrium is submitted for microscopic examination. / AM:emperatriz 12/25/2021 TC:5 [facility]: [id number]
[2021-12-25] MEDS: Ondansetron 4 MG/2 ML Vial IV (09:40)
[2021-12-26] MEDS: Acetaminophen 500 MG Tablet 1000 MG PO ×3 (00:01→11:39)
[2021-12-26 00:13] VITALS: BP 109/71; PULSE 72; RESP 16; TEMP 37.1; O2SAT 100
[2021-12-26 05:43] VITALS: BP 112/78; PULSE 68; RESP 16; TEMP 37.1; O2SAT 100
[2021-12-26 05:44] VITALS: BP 112/78; PULSE 68; RESP 16; TEMP 37.1; O2SAT 100
[2021-12-26 06:42] LABS: Hematocrit 29.4 % (37-47); Hemoglobin 9.8 g/dL (12.0-15.0); Mean Corp Hgb Conc 33.3 g/dL (32-36); Mean Corpuscular Hgb 30.5 pg (27.0-32.0); Mean Corpuscular Volume 91.6 fL (81-99); Mean Platelet Vol. 9.6 fl (6.2-12.0); Platelet Count 253 K/mm3 (150-450); RBC Distribution Width CV 13.2 % (11.6-14.6); RBC Distribution Width SD 44.2 fl (35.1-43.9); Red Blood Count 3.21 M/mm3 (4.2-5.4); White Blood Count 7.1 K/mm3 (4.4-11.0)
--- NOTE | 2021-12-26 07:29 | PCM.PN.OB ---
Subjective Subjective No overnight complaints. Pain well controlled. Still with Farmer catheter Objective Data Objective Data Vital Signs: Vital Signs Temp Pulse Resp BP Pulse Ox O2 Del Method O2 Flow Rate 98.7 F 68 16 112/78 100 Room Air 4 12/26/21 05:44 12/26/21 05:44 12/26/21 05:44 12/26/21 05:44 12/26/21 05:44 12/26/21 05:44 12/25/21 11:45 Oxygen Flow Rate (L/min) 4 Oxygen Delivery Method Room Air Weight: 125 lb Body Mass Index (BMI) 21.4 Intake & Output: Intake and Output for Last 24 Hours 12/24/21 12/25/21 12/26/21 23:59 23:59 23:59 Intake Total 2612 / 2612 800 / 800 Output Total 2400 / 2400 1875 / 1875 Balance 212 / 212 -1075 / -1075 Lab / Micro Data Result Diagrams: 12/26/21 05:25 Labs: Laboratory Results - last 24 hr 12/26/21 05:25: WBC 7.1, RBC 3.21 L, Hgb 9.8 L, Hct 29.4 L, MCV 91.6, MCH 30.5, MCHC 33.3, RDW Std Deviation 44.2 H, RDW Coeff of Nicole 13.2, Plt Count 253, MPV 9.6 Physical Exam Const alert, oriented x3, no apparent distress, average body habitus, healthy appearing and well nourished HEENT normocephalic and moist oral mucous membranes Eyes PERRL Neck full ROM Resp normal respiratory effort, no retractions and no use of accessory muscles GI GI Narrative: Soft, nontender, nondistended. Incisions clean dry and intact Extremity normal to inspection, full ROM and no clubbing, cyanosis or edema Neuro moves all extremities and no focal motor deficits Psych mental status grossly normal, affect normal, speech normal and activity/motor behavior normal Assessment & Plan (1) Post-operative pain: PLAN: Postoperative day 1 status post total laparoscopic hysterectomy bilateral salpingectomy cystoscopy. Pain well controlled. Patient with Farmer catheter in place, to remove Farmer catheter and await spontaneous void. Educated patient on postoperative recovery. Discussed voiding. Likely discharge home today after spontaneous void
[2021-12-26] MEDS: Ursodiol 250 MG Tablet PO (08:45)
--- NOTE | 2021-12-26 08:58 | NURSING ---
This RN was administering morning medications (Protonix and Olga). When clarifying the medications being given to the pt, the pt stated that she had already taken her Protonix. She had taken her home medications before this RN went in to give 1000 medications.
[2021-12-26] MEDS: FLU VACC QS2022-23(6MOS UP)/PF 60 MCG/0.5 ML SYRINGE IM (09:11)
[2021-12-26 09:45] VITALS: BP 117/76; PULSE 72; RESP 18; TEMP 36.7; O2SAT 99
== END 2021-12-26 12:19 | disposition home or self-care (01) ==
LOC: MS3 12-26 08:05
PROVIDERS: Anesthesiology; Admitting Provider Student in an Organized Health Care Education/Training Program; PCP Internal Medicine; Referring Provider Student in an Organized Health Care Education/Training Program; Visit Provider Student in an Organized Health Care Education/Training Program
PROC: 0UT94ZZ Resection of Uterus, Percutaneous Endoscopic Approach (ICD-10-PCS; CPT 58571; principal; 2021-12-25 07:10)
DX: N85.01 Benign endometrial hyperplasia (principal); E03.9 Hypothyroidism, unspecified; K21.9 Gastro-esophageal reflux disease without esophagitis; Z79.899 Other long term (current) drug therapy; Z79.890 Hormone replacement therapy; Z87.19 Personal history of other diseases of the digestive system; K76.0 Fatty (change of) liver, not elsewhere classified; R16.0 Hepatomegaly, not elsewhere classified; K22.70 Barrett's esophagus without dysplasia; Z23 Encounter for immunization
CPT/HCPCS: 58571; 36415; 51702; 81025; 82962; 83735; 85027; 86850; 86900; 86901; 88307; 99218; J7120; 90686; A4216; G0378; J2405; J3475

== ENCOUNTER → 2022-02-09 | Outpatient (CLI) | payer BC, SELFPAY ==
[2022-02-09 09:29] LABS: Absolute Lymphocyte Count 1.66 X10^3/uL (0.83-4.51); Absolute Neutrophil Count 1.9 X10^3/uL (2.0-7.7); Basophil# 0.03 X10^3/uL; Basophil% 0.7 % (0-1); Eosinophil# 0.08 X10^3/uL; Hematocrit 38.7 % (37-47); Hemoglobin 12.3 g/dL (12.0-15.0); Lymphocyte # 1.66 X10^3/ul (0.83-4.51); Lymphocyte % 41.4 % (19-41); Mean Corp Hgb Conc 31.8 g/dL (32-36); Mean Corpuscular Hgb 29.5 pg (27.0-32.0); Mean Corpuscular Volume 92.8 fL (81-99); Mean Platelet Vol. 9.3 fl (6.2-12.0); Monocyte# 0.29 X10^3/uL; Monocyte% 7.2 % (0-10); NRBC Flagged by Analyzer 0 % (0-5); Neutrophil # 1.94 X10^3/uL (2.7-7.7); Neutrophil % 48.5 % (47-70); Platelet Count 319 K/mm3 (150-450); RBC Distribution Width CV 12.9 % (11.6-14.6); RBC Distribution Width SD 43.7 fl (35.1-43.9); Red Blood Count 4.17 M/mm3 (4.2-5.4)
[2022-02-09 10:05] LABS: ALB/GLOB Ratio 1.1 RATIO (0.9-2.4); AST(SGOT) 9 U/L (15-37); Alanine Aminotransfer ALT/SGPT 22 U/L (13-56); Albumin, Serum 3.8 g/dL (3.2-5.0); Alkaline Phosphatase 62 U/L (45-117); Anion Gap 3 (5-15); BUN 12 mg/dL (7-18); BUN/Creat Ratio 16.8 RATIO (10-20); Calcium,Total 8.9 mg/dL (8.5-10.1); Chloride 103 mmol/L (98-107); Creatinine, Serum 0.71 mg/dL (0.55-1.02); EST Glomerular Filtration Rate 95 mL/min (>60); Est Glom Filt Rate - Afr Amer 115 mL/min (>60); Ferritin 7 ng/mL (8-252); Globulin 3.6 g/dL (2.2-4.2); Glucose 65 mg/dL (74-106); Iron 90 ug/dL (50-170); Iron Binding Capacity,Total 394 ug/dL (250-450); PERCENT IRON SATURATION 22.8 % (15.0-55.0); Potassium 3.9 mmol/L (3.5-5.1); Protein, Total 7.4 g/dL (6.4-8.2); Sodium Level 138 mmol/L (136-145)
[2022-02-10 15:08] LABS: Cytoplasmic Ab (C-ANCA) <1:20 titer (Neg:<1:20)
[2022-02-10 20:55] LABS: Anti-Smooth Muscle ABS 47 Units (0-19); Perinuclear Ab (P-ANCA) <1:20 titer (Neg:<1:20)
== END | disposition home or self-care (01) ==
LOC: LAB 08:57
PROVIDERS: PCP Internal Medicine; Referring Provider Nurse Practitioner Adult Health; Visit Provider Nurse Practitioner Adult Health
DX: D64.9 Anemia, unspecified (principal); K74.00 Hepatic fibrosis, unspecified
CPT/HCPCS: 36415; 80053; 82728; 83516; 83540; 83550; 85025; 86256

== ENCOUNTER → 2022-03-11 | Outpatient (CLI) | payer BC, SELFPAY ==
--- NOTE | 2022-03-11 09:21 | US_ITS ---
STUDY: ABDOMINAL ULTRASOUND - ELASTOGRAPHY REASON FOR VISIT: Female, 41 years old. Hepatic fibrosis. TECHNIQUE: Liver stiffness measurements were obtained on a [employer] RS 85 ultrasound machine using a CA 1-7 probe following the SRU guidelines. 3 measurements were obtained using a 2-D-SWE method. TheIQR/M was 11% suggesting a quality data set. TECHNICAL QUALITY: Adequate. COMPARISON: Comparison is made with prior examination done earlier today. FINDINGS: Liver: Hepatomegaly. Median liver stiffness measured 11 kPa. US/Elastography Parenchyma/Organ IMPRESSION: Liver stiffness measures 11 kPa compatible with F2-F3 (Mild to moderate liver fibrosis) Metavir score. Electronically Signed: Luis Smith MD at 12:45 EST ,
--- NOTE | 2022-03-11 09:21 | US_ITS ---
STUDY: ABDOMINAL ULTRASOUND - RIGHT UPPER QUADRANT REASON FOR VISIT: Female, 41 years old . Hepatic fibrosis. TECHNIQUE: Ultrasound evaluation of the right upper quadrant was performed with real-time and static whitman-scale imaging. TECHNICAL QUALITY: Adequate. COMPARISON: Comparison is made with prior study dated 09/09/2021. FINDINGS: Liver: The liver is enlarged and measures 19.5 cm. There is normal echogenicity of the liver. The bile ducts are within normal limits. There is hepatic color flow. The direction of portal flow is hepatopetal. Multiple small cysts are seen in the left lobe. Gallbladder: Normal distended gallbladder. The gallbladder wall measures 1.1 mm. There is a negative sonographic Sinha''s sign. There is no pericholecystic fluid. There are no gallstones. There is a 4 mm x 3 mm x 4 mm gallbladder polyp adherent to the gallbladder wall. Common Bile Duct (C.B.D.): The common bile duct measures 4 mm. Pancreas: Normal size of the head, body and tail of the pancreas. There is normal echogenicity of the pancreas. There is no demonstrated pancreatic mass or cyst. Right Kidney: Normal size of the right kidney. The right kidney measures 11.8 cm x 5.2 cm x 3.9 cm. Normal renal cortex. The right cortex measures 1.1 cm. There is no demonstrated renal mass or cyst. There is no right hydronephrosis. US/Abdomen Limited IMPRESSION: Hepatomegaly. Stable hepatic cysts. Small gallbladder polyp. Electronically Signed: Luis Smith MD at 12:30 EST ,
== END | disposition home or self-care (01) ==
LOC: US 09:20
PROVIDERS: PCP Internal Medicine; Visit Provider Nurse Practitioner Adult Health
DX: K74.00 Hepatic fibrosis, unspecified (principal)
CPT/HCPCS: 76705; 76981